=== PATIENT | female | born 1965 | race Caucasian/White ===

== ENCOUNTER 2017-01-10 12:29 | Emergency (ER) | payer MEDICAID, OTHER ==
[~2017-01-10] VITALS: Ht 162.6 cm; Wt 55.0 kg
[2017-01-10 12:31] VITALS: BP 162/97
[2017-01-10] MEDS ORDERED: QUET25TA PO (12:33)
== END 2017-01-10 14:00 | disposition left against medical advice (07) ==
LOC: ER 12:40
DX: Z53.21 Procedure and treatment not carried out due to patient leaving prior to being seen by health care provider (principal)